=== PATIENT | female | born 1960 | race Caucasian/White ===

== ENCOUNTER 2019-01-31 16:18 | Inpatient (IN) | payer MEDICARE ==
[2019-01-31] MEDS ORDERED: SODIUM CHLORIDE 0.9% 1,000 ML IV STA (17:48)
[2019-01-31] MEDS ORDERED: AMPICILLIN-SULBACTAM 3 GM in SODIUM CHLORIDE 0.9% 100 ML IVPB STA (18:02)
[2019-01-31 18:08] LABS: Glucose,Whole Blood 79 mg/dL (75-99)
[2019-01-31 18:33] LABS: Basophils % (A) 0 %; Eosinophils # (A) 0.1 k/uL (0-0.7); Eosinophils % (A) 1 %; HCT 38.7 % (34.0-46.0); HGB 12.7 gm/dL (11.4-16.0); Lymphocytes # (A) 1.3 k/uL (1.0-4.8); Lymphocytes % (A) 11 %; MCH 28.2 pg (25.0-35.0); MCHC 32.8 g/dL (31.0-37.0); Mean Platelet Volume 7.2; Monocytes # (A) 0.8 k/uL (0-1.0); Monocytes % (A) 7 %; Neutrophils # (A) 8.7 k/uL (1.3-7.7); Neutrophils % (A) 79 %; Platelet Count 262 k/uL (150-450); RDW 13.7 % (11.5-15.5)
[2019-01-31 18:38] LABS: ALT 19 U/L (9-52); AST 23 U/L (14-36); Albumin 4.7 g/dL (3.5-5.0); Alkaline Phosphatase 75 U/L (38-126); Anion Gap 7 mmol/L; Blood Urea Nitrogen 24 mg/dL (7-17); Calcium 10.1 mg/dL (8.4-10.2); Carbon Dioxide 29 mmol/L (22-30); Chloride 104 mmol/L (98-107); Glucose 57 mg/dL (74-99); Potassium 4.2 mmol/L (3.5-5.1); Sodium 140 mmol/L (137-145); Total Bilirubin 0.5 mg/dL (0.2-1.3); Total Protein 7.2 g/dL (6.3-8.2)
[2019-01-31] MEDS ORDERED: NALOXONE 0.4 MG/ML 1 ML VIAL IV PRN (20:12)
[2019-01-31 20:45] LABS: Glucose,Whole Blood 121 mg/dL (75-99)
--- NOTE | 2019-01-31 21:09 | ED ---
General Adult HPI - General Chief complaint: Wound/Laceration Stated complaint: infected dog bite Time Seen by Provider: 01/31/19 17:19 Source: patient Mode of arrival: wheelchair Limitations: no limitations - History of Present Illness Initial comments: Patient is 58-year-old female presented to emergency department with right hand pain. Patient states that yesterday she got a dog bite on her right hand and went to [facility] where she received 6 sutures and was not discharged with any antibiotics. Patient states that the laceration has become erythematous and edematous and is now spreading proximal along the forearm. Patient states she has not taken any medication to alleviate the pain. Patient states that she has not seen any visible discharge from the laceration site. Patient denies any nausea, vomiting, diarrhea, fever, headache, lightheadedness or dizziness. - Related Data Home Medications Medication Instructions Recorded Confirmed Atorvastatin [Lipitor] 40 mg PO DAILY 01/31/19 01/31/19 Clopidogrel Bisulfate [Plavix] 75 mg PO DAILY 01/31/19 01/31/19 INSULIN LISPRO (HumaLOG) [humaLOG] See Protocol SQ ACHS 01/31/19 01/31/19 Insulin Glargine [Lantus] 30 unit SQ HS 01/31/19 01/31/19 Levothyroxine Sodium [Synthroid] 125 mcg PO DAILY 01/31/19 01/31/19 Lisinopril [Prinivil] 5 mg PO DAILY 01/31/19 01/31/19 Metoclopramide HCl [Reglan] 5 mg PO TID 01/31/19 01/31/19 Metoprolol Tartrate 25 mg PO DAILY 01/31/19 01/31/19 Sertraline [Zoloft] 200 mg PO DAILY 01/31/19 01/31/19 Allergies Allergy/AdvReac Type Severity Reaction Status Date / Time ibuprofen Allergy Unknown Verified 01/31/19 20:45 latex Allergy Unknown Verified 01/31/19 20:45 Review of Systems ROS Statement: Those systems with pertinent positive or pertinent negative responses have been documented in the HPI. ROS Other: All systems not noted in ROS Statement are negative. Past Medical History Past Medical History: CVA/TIA, Diabetes Mellitus, Myocardial Infarction ([place]) History of Any Multi-Drug Resistant Organisms: None Reported Past Surgical History: Heart Catheterization With Stent Additional Past Surgical History / Comment(s): prosthetic eye, gastric implant Past Psychological History: No Psychological Hx Reported Smoking Status: Never smoker Past Alcohol Use History: None Reported Past Drug Use History: None Reported General Exam Limitations: no limitations General appearance: alert, in no apparent distress Head exam: Present: atraumatic, normocephalic, normal inspection Eye exam: Present: normal appearance Respiratory exam: Present: normal lung sounds bilaterally Cardiovascular Exam: Present: regular rate, normal rhythm, normal heart sounds Right Shoulder Exam: Present: normal inspection, full ROM Upper Arm exam: Present: normal inspection, full ROM Elbow exam: Present: normal inspection, full ROM Forearm Wrist exam: Present: tenderness, swelling (Starting from hand and spreading proximally to mid forearm), laceration, erythema, other (2.5 cm laceration repaired with 6 sutures on posterior aspect of her right arm.). Absent: full ROM (Limited due to pain), tenderness over anatomical snuff box Hand Wrist exam: Present: tenderness, swelling, laceration, erythema Vascular: Present: normal capillary refill, radial pulse, ulnar pulse Neurological exam: Present: alert, oriented X3 Psychiatric exam: Present: normal affect, normal mood Skin exam: Present: warm, normal color Course Vital Signs 01/31/19 01/31/19 16:41 20:36 Temperature 99.4 F 98.4 F Pulse Rate 69 69 Respiratory 18 18 Rate Blood Pressure 121/66 146/66 O2 Sat by Pulse 99 98 Oximetry Medical Decision Making - Medical Decision Making Patient is a 58-year-old female presents emergency department for right hand pain. Distal physical examination patient will be admitted for inpatient care. Patient received 3 g of Unasyn. CBC, CMP, lactic acid were obtained. 1 L of fluids were administered. Patient will be admitted to observation. Admitting physician is Dr. Aranda. Dr. Avila also examined the patient and his agreed with the treatment plan. - Lab Data Result diagrams: 01/31/19 18:05 01/31/19 18:05 Lab Results 01/31/19 01/31/19 01/31/19 Range/Units 17:57 18:05 18:05 WBC 11.0 H (3.8-10.6) k/uL RBC 4.50 (3.80-5.40) m/uL Hgb 12.7 (11.4-16.0) gm/dL Hct 38.7 (34.0-46.0) % MCV 86.0 (80.0-100.0) fL MCH 28.2 (25.0-35.0) pg MCHC 32.8 (31.0-37.0) g/dL RDW 13.7 (11.5-15.5) % Plt Count 262 (150-450) k/uL Neutrophils % 79 % Lymphocytes % 11 % Monocytes % 7 % Eosinophils % 1 % Basophils % 0 % Neutrophils # 8.7 H (1.3-7.7) k/uL Lymphocytes # 1.3 (1.0-4.8) k/uL Monocytes # 0.8 (0-1.0) k/uL Eosinophils # 0.1 (0-0.7) k/uL Basophils # 0.0 (0-0.2) k/uL Sodium (137-145) mmol/L Potassium (3.5-5.1) mmol/L Chloride (98-107) mmol/L Carbon Dioxide (22-30) mmol/L Anion Gap mmol/L BUN (7-17) mg/dL Creatinine (0.52-1.04) mg/dL Est GFR (CKD-EPI)AfAm (>60 ml/min/1.73 sqM) Est GFR (CKD-EPI)NonAf (>60 ml/min/1.73 sqM) Glucose (74-99) mg/dL POC Glucose (mg/dL) 79 (75-99) mg/dL POC Glu Women Specialist ID Petitpren, Marcy Plasma Lactic Acid Mark 0.9 (0.7-2.0) mmol/L Calcium (8.4-10.2) mg/dL Total Bilirubin (0.2-1.3) mg/dL AST (14-36) U/L ALT (9-52) U/L Alkaline Phosphatase (38-126) U/L Total Protein (6.3-8.2) g/dL Albumin (3.5-5.0) g/dL 01/31/19 01/31/19 Range/Units 18:05 20:40 WBC (3.8-10.6) k/uL RBC (3.80-5.40) m/uL Hgb (11.4-16.0) gm/dL Hct (34.0-46.0) % MCV (80.0-100.0) fL MCH (25.0-35.0) pg MCHC (31.0-37.0) g/dL RDW (11.5-15.5) % Plt Count (150-450) k/uL Neutrophils % % Lymphocytes % % Monocytes % % Eosinophils % % Basophils % % Neutrophils # (1.3-7.7) k/uL Lymphocytes # (1.0-4.8) k/uL Monocytes # (0-1.0) k/uL Eosinophils # (0-0.7) k/uL Basophils # (0-0.2) k/uL Sodium 140 (137-145) mmol/L Potassium 4.2 (3.5-5.1) mmol/L Chloride 104 (98-107) mmol/L Carbon Dioxide 29 (22-30) mmol/L Anion Gap 7 mmol/L BUN 24 H (7-17) mg/dL Creatinine 0.69 (0.52-1.04) mg/dL Est GFR (CKD-EPI)AfAm >90 (>60 ml/min/1.73 sqM) Est GFR (CKD-EPI)NonAf >90 (>60 ml/min/1.73 sqM) Glucose 57 L (74-99) mg/dL POC Glucose (mg/dL) 121 H (75-99) mg/dL POC Glu Women Specialist ID Radha Og Plasma Lactic Acid Mark (0.7-2.0) mmol/L Calcium 10.1 (8.4-10.2) mg/dL Total Bilirubin 0.5 (0.2-1.3) mg/dL AST 23 (14-36) U/L ALT 19 (9-52) U/L Alkaline Phosphatase 75 (38-126) U/L Total Protein 7.2 (6.3-8.2) g/dL Albumin 4.7 (3.5-5.0) g/dL Disposition Clinical Impression: Laceration, Abscess Disposition: ADMITTED IP TO THIS HOSP Condition: Stable Additional Instructions: Patient admitted for inpatient care. Is patient prescribed a controlled substance at d/c from ED?: No Referrals: Edmar Gallegos DO [Primary Care Provider] - 1-2 days
--- NOTE | 2019-01-31 22:55 | P.HPIM ---
History of Present Illness H&P Date: 01/31/19 Patient is a 52-year-old female with a past medical history of type 1 diabetes mellitus, and CAD with multiple MIs and several stents, presented to the ED for right hand dog bite. The patient reports that her [place] bulldog bit her on the right hand yesterday at 12 PM. She subsequently went to her local urgent care center where they placed 7 sutures and discharged her to home without antibiotics. 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 The patient notes that her swelling has worsened since yesterday and she now has some discharge from the wound. She endorsed continued pain, currently at a 6 out of 10 at the site. She otherwise denied weakness or paresthesias of the hand. She further denied fever, chills, chest pain, shortness of breath, nausea, or vomiting. She also denied abdominal pain, diarrhea, or recent travel. The patient underwent an extensive elevation in the ED with WBC count 11, creatinine 0.69, BUN 24, and hemoglobin 12.7. 2 of the sutures were removed from her right hand and she was given a dose of Unasyn and subsequently admitted to the medicine service for further management. Review of Systems Pertinent positives and negatives as discussed in HPI, a complete review of systems was performed and all other systems are negative. Past Medical History Past Medical History: CVA/TIA, Diabetes Mellitus, Myocardial Infarction ([place]) History of Any Multi-Drug Resistant Organisms: None Reported Past Surgical History: Heart Catheterization With Stent Additional Past Surgical History / Comment(s): prosthetic eye, gastric implant Past Psychological History: No Psychological Hx Reported Smoking Status: Never smoker Past Alcohol Use History: None Reported Past Drug Use History: None Reported Medications and Allergies Home Medications Medication Instructions Recorded Confirmed Type Atorvastatin [Lipitor] 40 mg PO DAILY 01/31/19 01/31/19 History Clopidogrel Bisulfate [Plavix] 75 mg PO DAILY 01/31/19 01/31/19 History INSULIN LISPRO (HumaLOG) [humaLOG] See Protocol SQ ACHS 01/31/19 01/31/19 History Insulin Glargine [Lantus] 30 unit SQ HS 01/31/19 01/31/19 History Levothyroxine Sodium [Synthroid] 125 mcg PO DAILY 01/31/19 01/31/19 History Lisinopril [Prinivil] 5 mg PO DAILY 01/31/19 01/31/19 History Metoclopramide HCl [Reglan] 5 mg PO TID 01/31/19 01/31/19 History Metoprolol Tartrate 25 mg PO DAILY 01/31/19 01/31/19 History Sertraline [Zoloft] 200 mg PO DAILY 01/31/19 01/31/19 History Allergies Allergy/AdvReac Type Severity Reaction Status Date / Time ibuprofen Allergy Unknown Verified 01/31/19 20:45 latex Allergy Unknown Verified 01/31/19 20:45 Physical Exam Vitals: Vital Signs Temp Pulse Resp BP Pulse Ox 01/31/19 20:36 98.4 F 69 18 146/66 98 01/31/19 16:41 99.4 F 69 18 121/66 99 Intake and Output 01/31/19 01/31/19 01/31/19 06:59 14:59 22:59 Other: Weight 83.007 kg General: non toxic, no distress, appears at stated age, obese Derm: Right hand posterior 5 cm laceration with sutures in place, small amounts of purulent drainage, tenderness, erythema, and swelling proximally to the wou nd, on the forearm Head: atraumatic, normocephalic, symmetric Eyes: EOMI, no lid lag, anicteric sclera, pupils equal round reactive to light ENT: Nose and ears atraumatic, no thrush, no pharyngeal erythema Neck: No thyromegaly, no cervical lymphadenopathy, trachea midline, supple Mouth: no lip lesion, mucus membranes moist Cardiovascular: S1S2 reg, no murmur, positive posterior tibial pulse bilateral, no edema, capillary refill less than 2 seconds Lungs: CTA bilateral, no rhonchi, no rales , no accessory muscle use Abdominal: soft, nontender to palpation, no guarding, no appreciable organome daya, normal bowel sounds Ext: no gross muscle atrophy, muscle strength 5 out of 5 in all 4 extremities grossly, no contractures, Neuro: CN II-XI grossly intact, light touch intact all 4 extremities, finger to nose within normal limits, Psych: Alert, oriented, appropriate affect Results CBC & Chem 7: 01/31/19 18:05 01/31/19 18:05 Labs: Abnormal Lab Results - Last 24 Hours (Table) 01/31/19 01/31/19 01/31/19 Range/Units 18:05 18:05 20:40 WBC 11.0 H (3.8-10.6) k/uL Neutrophils # 8.7 H (1.3-7.7) k/uL BUN 24 H (7-17) mg/dL Glucose 57 L (74-99) mg/dL POC Glucose (mg/dL) 121 H (75-99) mg/dL Assessment and Plan Plan: Dog bite, status post suturing -Continue with Unasyn for now -Likely switch to Augmentin for discharge -Surgery consult since failed outpatient therapy, and sutures in a high-risk area Diabetes mellitus -Resume home medications, Lantus and Humalog -Blood glucose monitoring CAD -Continue with Plavix, Lipitor Hypertension -Resume home medications, lisinopril, Toprol DVT prophylaxis -Heparin The patient is admitted with an anticipated less than 2 midnight stay for evaluation of Dog bite. CODE STATUS:Full Code Discussed with: Patient Anticipated discharge date: 02/02/[address]: Home A total of 40 minutes was spent on the care of this complex patient more than 50% of the time was spent in counseling and care coordination.
[2019-01-31] MEDS: MORPHINE SULFATE 4 MG/ML SYRINGE IV PRN (22:56)
[2019-01-31] MEDS ORDERED: INSULIN DETEMIR (LEVEMIR) 100 UNIT/ML SYR SQ SCH (23:00)
[2019-01-31 23:12] LABS: Glucose,Whole Blood 160 mg/dL (75-99)
[2019-01-31] MEDS: AMPICILLIN-SULBACTAM 1.5 GM in SODIUM CHLORIDE 0.9% 50 ML IVPB SCH (23:13)
[2019-02-01] MEDS: HYDROcodone/APAP 5-325MG 1 EACH TAB PO PRN (00:22)
[2019-02-01] MEDS: HEPARIN SODIUM,PORCINE 5,000 UNIT/ML 1 ML VIAL SQ SCH ×4 (00:22→22:50)
[2019-02-01] MEDS: AMPICILLIN-SULBACTAM 1.5 GM in SODIUM CHLORIDE 0.9% 50 ML IVPB SCH ×3 (05:25→22:34)
[2019-02-01] MEDS: LEVOTHYROXINE 125 MCG TAB PO SCH (05:25)
--- NOTE | 2019-02-01 07:18 | P.GSCN ---
History of Present Illness Consult date: 02/01/19 Reason for Consult: Dog bite left hand History of present illness: This is a 58-year-old female who was bit by her pet bulldog. Patient had a laceration of her left hand which was repaired.. She had some swelling and inflammation of her left hand and forearm. Patient admitted to the hospital for cellulitis of the left hand and forearm. She received IV antibiotic therapy overnight. Her swelling has improved. 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 2009 with left sided weakness, Last [place] september 2009, 7 Stents placed Last Myocardial Infarction Date:: september 2009 History of Any Multi-Drug Resistant Organisms: None Reported Past Surgical History: Heart Catheterization With Stent Additional Past Surgical History / Comment(s): prosthetic eye, gastric implant Date of Last Stent Placement:: august 2010 Past Psychological History: No Psychological Hx Reported Smoking Status: Never smoker Past Alcohol Use History: None Reported Past Drug Use History: None Reported Medications and Allergies Home Medications Medication Instructions Recorded Confirmed Type Atorvastatin [Lipitor] 40 mg PO DAILY 01/31/19 01/31/19 History Clopidogrel Bisulfate [Plavix] 75 mg PO DAILY 01/31/19 01/31/19 History INSULIN LISPRO (HumaLOG) [humaLOG] See Protocol SQ ACHS 01/31/19 01/31/19 History Insulin Glargine [Lantus] 30 unit SQ HS 01/31/19 01/31/19 History Levothyroxine Sodium [Synthroid] 125 mcg PO DAILY 01/31/19 01/31/19 History Lisinopril [Prinivil] 5 mg PO DAILY 01/31/19 01/31/19 History Metoclopramide HCl [Reglan] 5 mg PO TID 01/31/19 01/31/19 History Metoprolol Tartrate 25 mg PO DAILY 01/31/19 01/31/19 History Sertraline [Zoloft] 200 mg PO DAILY 01/31/19 01/31/19 History Allergies Allergy/AdvReac Type Severity Reaction Status Date / Time ibuprofen Allergy Unknown Verified 01/31/19 20:45 latex Allergy Unknown Verified 01/31/19 20:45 Surgical - Exam Vital Signs Temp Pulse Resp BP Pulse Ox 99.4 F 69 18 121/66 99 01/31/19 16:41 01/31/19 16:41 01/31/19 16:41 01/31/19 16:41 01/31/19 16:41 - General well developed, well nourished, no distress - Eyes PERRL - ENT normal pinna - Neck no masses - Respiratory normal expansion - Cardiovascular Rhythm: regular - Abdomen Abdomen: soft, non tender - Musculoskeletal Left hand mild swelling. There is evidence of a laceration repair on the dorsal left hand. Patient is able to move all of her fingers. She has normal sensation. There is some erythematous extending from the hand onto the forearm. There is some mild swelling as well. Results - Labs 01/31/19 18:05 01/31/19 18:05 Abnormal Lab Results - Last 24 Hours (Table) 01/31/19 01/31/19 01/31/19 Range/Units 18:05 18:05 20:40 WBC 11.0 H (3.8-10.6) k/uL Neutrophils # 8.7 H (1.3-7.7) k/uL BUN 24 H (7-17) mg/dL Glucose 57 L (74-99) mg/dL POC Glucose (mg/dL) 121 H (75-99) mg/dL 01/31/19 Range/Units 22:53 WBC (3.8-10.6) k/uL Neutrophils # (1.3-7.7) k/uL BUN (7-17) mg/dL Glucose (74-99) mg/dL POC Glucose (mg/dL) 160 H (75-99) mg/dL Diabetes panel 01/31/19 Range/Units 18:05 Sodium 140 (137-145) mmol/L Potassium 4.2 (3.5-5.1) mmol/L Chloride 104 (98-107) mmol/L Carbon Dioxide 29 (22-30) mmol/L BUN 24 H (7-17) mg/dL Creatinine 0.69 (0.52-1.04) mg/dL Glucose 57 L (74-99) mg/dL Calcium 10.1 (8.4-10.2) mg/dL AST 23 (14-36) U/L ALT 19 (9-52) U/L Alkaline Phosphatase 75 (38-126) U/L Total Protein 7.2 (6.3-8.2) g/dL Albumin 4.7 (3.5-5.0) g/dL Calcium panel 01/31/19 Range/Units 18:05 Calcium 10.1 (8.4-10.2) mg/dL Albumin 4.7 (3.5-5.0) g/dL Pituitary panel 01/31/19 Range/Units 18:05 Sodium 140 (137-145) mmol/L Potassium 4.2 (3.5-5.1) mmol/L Chloride 104 (98-107) mmol/L Carbon Dioxide 29 (22-30) mmol/L BUN 24 H (7-17) mg/dL Creatinine 0.69 (0.52-1.04) mg/dL Glucose 57 L (74-99) mg/dL Calcium 10.1 (8.4-10.2) mg/dL Adrenal panel 01/31/19 Range/Units 18:05 Sodium 140 (137-145) mmol/L Potassium 4.2 (3.5-5.1) mmol/L Chloride 104 (98-107) mmol/L Carbon Dioxide 29 (22-30) mmol/L BUN 24 H (7-17) mg/dL Creatinine 0.69 (0.52-1.04) mg/dL Glucose 57 L (74-99) mg/dL Calcium 10.1 (8.4-10.2) mg/dL Total Bilirubin 0.5 (0.2-1.3) mg/dL AST 23 (14-36) U/L ALT 19 (9-52) U/L Alkaline Phosphatase 75 (38-126) U/L Total Protein 7.2 (6.3-8.2) g/dL Albumin 4.7 (3.5-5.0) g/dL Assessment and Plan Assessment: Left hand/forearm synovitis related to dog bite. Patient receive IV antibiotic. If the patient has increased swelling she will require consultation by hand surgeon. I would recommend orthopedic appeared to be consult with during her hospitalization..
[2019-02-01] MEDS: INSULIN ASPART (NovoLOG) 100 UNIT/ML VIAL SQ SCH ×4 (07:39→22:34)
[2019-02-01] MEDS: SERTRALINE 100 MG TAB PO SCH (07:40)
[2019-02-01] MEDS: MORPHINE SULFATE 4 MG/ML SYRINGE IV PRN ×2 (07:40→11:43)
[2019-02-01] MEDS: CLOPIDOGREL 75 MG TAB PO SCH (07:40)
[2019-02-01] MEDS: LISINOPRIL 5 MG TAB PO SCH (07:41)
[2019-02-01] MEDS: ATORVASTATIN 40 MG TAB PO SCH (07:41)
[2019-02-01] MEDS: METOPROLOL TARTRATE 25 MG TAB PO SCH (07:43)
[2019-02-01 07:45] LABS: Glucose,Whole Blood 60 mg/dL (75-99)
[2019-02-01 08:11] LABS: Glucose,Whole Blood 69 mg/dL (75-99)
[2019-02-01 08:16] LABS: Glucose,Whole Blood 86 mg/dL (75-99)
[2019-02-01] MEDS: ONDANSETRON 4 MG/2 ML VIAL IVP PRN ×2 (08:42→16:17)
--- NOTE | 2019-02-01 11:00 | P.CNOR ---
History of Present Illness - HPI Consult date: 02/01/19 Consult reason: other History of present illness: Patient is a 4-year-old female who presented to [facility] yesterday evening with regards to swelling and pain all the lower right hand. Patient was apparently bitten by her dog the afternoon of 01/30/2019. She first went to urgent care and [facility], sutures were placed, she was now placed on antibiotics. By yesterday evening she had noticed increasing pain and swelling and redness involving the hand. At [facility], the ER staff remove most of the stitches and irrigated out the wound. A few sutures were then placed again, she is placed on IV antibiotics and admitted to the hospital. She is currently admitted under internal medicine, general surgery has evaluated the patient also. Patient was evaluated today at bedside, Dr. Fuentes was available to examine the patient also. Patient notes that the swelling and redness has decreased, the pain is roughly the same. This controlled currently with oral medication. She notes discomfort involving the hand mainly when she tries to move the fingers and wrists. She denies any previous surgery involving the right upper extremity. She has no other orthopedic complaints at this time. 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, Last [place] september 2009, 7 Stents placed Last Myocardial Infarction Date:: september 2009 History of Any Multi-Drug Resistant Organisms: None Reported Past Surgical History: Heart Catheterization With Stent Additional Past Surgical History / Comment(s): prosthetic eye, gastric implant Date of Last Stent Placement:: august 2010 Past Psychological History: No Psychological Hx Reported Smoking Status: Never smoker Past Alcohol Use History: None Reported Past Drug Use History: None Reported Medications and Allergies Home Medications Medication Instructions Recorded Confirmed Type Atorvastatin [Lipitor] 40 mg PO DAILY 01/31/19 01/31/19 History Clopidogrel Bisulfate [Plavix] 75 mg PO DAILY 01/31/19 01/31/19 History INSULIN LISPRO (HumaLOG) [humaLOG] See Protocol SQ ACHS 01/31/19 01/31/19 History Insulin Glargine [Lantus] 30 unit SQ HS 01/31/19 01/31/19 History Levothyroxine Sodium [Synthroid] 125 mcg PO DAILY 01/31/19 01/31/19 History Lisinopril [Prinivil] 5 mg PO DAILY 01/31/19 01/31/19 History Metoclopramide HCl [Reglan] 5 mg PO TID 01/31/19 01/31/19 History Metoprolol Tartrate 25 mg PO DAILY 01/31/19 01/31/19 History Sertraline [Zoloft] 200 mg PO DAILY 01/31/19 01/31/19 History Allergies Allergy/AdvReac Type Severity Reaction Status Date / Time ibuprofen Allergy Unknown Verified 01/31/19 20:45 latex Allergy Unknown Verified 01/31/19 20:45 Physical Examination Right upper extremity: Mobile transverse laceration on the dorsal aspect of the hand, it ranges about 5 cm, there are nylon sutures present. Obvious soft tissue swelling is present, there is trace redness that does extend up to the middle of the forearm. No obvious purulent drainage is present. She is able to wiggle her fingers, she can also make a fist. Strength testing there is notable weakness with extension of the index finger. Sensation to light touch throughout the extremities intact, her radial pulses 2+. Skin is warm to touch. Results - Labs Labs: Abnormal Lab Results - Last 24 Hours (Table) 01/31/19 01/31/19 01/31/19 Range/Units 18:05 18:05 20:40 WBC 11.0 H (3.8-10.6) k/uL Neutrophils # 8.7 H (1.3-7.7) k/uL BUN 24 H (7-17) mg/dL Glucose 57 L (74-99) mg/dL POC Glucose (mg/dL) 121 H (75-99) mg/dL 01/31/19 02/01/19 02/01/19 Range/Units 22:53 07:31 07:50 WBC (3.8-10.6) k/uL Neutrophils # (1.3-7.7) k/uL BUN (7-17) mg/dL Glucose (74-99) mg/dL POC Glucose (mg/dL) 160 H 60 L 69 L (75-99) mg/dL H & H 01/31/19 Range/Units 18:05 Hgb 12.7 (11.4-16.0) gm/dL Hct 38.7 (34.0-46.0) % Result Diagrams: 01/31/19 18:05 01/31/19 18:05 Assessment and Plan Plan: Imaging: I did order x-rays of the right hand, awaiting results Assessment: 1. Right hand laceration 2. Possible partial extensor tendon injury right index finger 3. Right hand cellulitis 4. Status post dog bite 5. Other medical comorbidities Plan: Dr. Fuentes was available today to examine the patient with me at bedside. We discussed many treatment options with the patient. We'll like to proceed with an incision and drainage with irrigation and debridement of the right hand, along with possible extensor tendon repair. Risks and benefits of the procedure were discussed patient at bedside, she would like to proceed. Plan is proceed with surgery on 02/01/2019 Obtain consent Nothing by mouth Pain control Other biomedical scientist recommendations Further recommendations to follow Time with Patient: Less than 30
[2019-02-01 11:44] LABS: Glucose,Whole Blood 135 mg/dL (75-99)
--- NOTE | 2019-02-01 12:14 | XR ---
Right hand HISTORY: Penetrating trauma, dog bite, erythema 3 views the right hand Soft tissue swelling is present. There is remodeling of the radiocarpal joint. No radiopaque foreign body. No fracture or dislocation evident. Soft tissue calcifications are noted at the level of the di stal third metacarpal. Basilar calcifications noted incidentally. IMPRESSION: Correlate for cellulitis.
--- NOTE | 2019-02-01 12:48 | P.PN ---
Subjective Progress Note Date: 02/01/19 Principal diagnosis: dog bite Patient was seen and examined. No acute events overnight. Patient reports right hand pain is radiating up to the elbow. Unable to flex her fingers. She denies any fever or chills. No nausea or vomiting. Objective - Vital Signs Vital signs: Vital Signs Temp 98.0 F 02/01/19 07:30 Pulse 61 02/01/19 07:30 Resp 16 02/01/19 07:30 BP 115/69 02/01/19 07:30 Pulse Ox 94 L 02/01/19 07:30 Intake & Output 01/31/19 02/01/19 02/01/19 18:59 06:59 18:59 Weight 83.007 kg Other: Voiding Method Toilet # Voids 1 - Exam General: [non toxic], [no distress], [appears at stated age] Derm: [warm], [dry] Head: [atraumatic], [normocephalic], [symmetric] Eyes: [EOMI], [no lid lag], [anicteric sclera] Mouth: [no lip lesion], [mucus membranes moist] Cardiovascular: [S1S2 reg], [no murmur], [positive DP pulse bilateral], Lungs: [CTA bilateral], [no rhonchi, no rales] , [no accessory muscle use] Abdominal: [soft], [ nontender to palpation], [no guarding], [no appreciable organomegaly] Ext: [no gross muscle atrophy], [no edema], [no contractures], [dorsal laceration 5 cm sutures, generalized tenderness, restricted range of motion] Neuro: [decreased sensation left lower extremity] Psych: [Alert], [oriented], [appropriate affect] - Labs CBC & Chem 7: 01/31/19 18:05 01/31/19 18:05 Labs: Abnormal Lab Results - Last 24 Hours (Table) 01/31/19 01/31/19 01/31/19 Range/Units 18:05 18:05 20:40 WBC 11.0 H (3.8-10.6) k/uL Neutrophils # 8.7 H (1.3-7.7) k/uL BUN 24 H (7-17) mg/dL Glucose 57 L (74-99) mg/dL POC Glucose (mg/dL) 121 H (75-99) mg/dL 01/31/19 02/01/19 02/01/19 Range/Units 22:53 07:31 07:50 WBC (3.8-10.6) k/uL Neutrophils # (1.3-7.7) k/uL BUN (7-17) mg/dL Glucose (74-99) mg/dL POC Glucose (mg/dL) 160 H 60 L 69 L (75-99) mg/dL 02/01/19 Range/Units 11:42 WBC (3.8-10.6) k/uL Neutrophils # (1.3-7.7) k/uL BUN (7-17) mg/dL Glucose (74-99) mg/dL POC Glucose (mg/dL) 135 H (75-99) mg/dL Assessment and Plan Assessment: Assessment and Plan Dog bite right hand post suturing Diabetes mellitus CAD Hypertension Hypothyroidism. Plan: Continue Unasyn IV. Pain management with [place] or morphine.general surgery consulted, recommends orthopedic consultation. Orthopedic surgery consulted, recommends I&D and possible tendon repair.follow and x-ray. Follow blood culture. Possible plans for OR tomorrow. [id number] glucose 135. Plan: Levemir 25 units at bedtime. Insulin sliding scale. Hypoglycemic precautions. Regular Accu-Cheks. Ensure type glycemic control that would prevent poor wound healing. Plan: Continue Plavix and Lipitor. Continue beta yumiko. BP 115/69. Plan: Continue metoprolol and lisinopril. Monitor vitals, adjust medications as necessary. Plan: Continue Synthroid. Plans for possible OR today or tomorrow. Continue IV antibiotics. Orthopedic surgery on board.
[2019-02-01] MEDS ORDERED: IV FLUID CONTINUATION 1,000 ML IV ONE (17:04)
[2019-02-01] MEDS ORDERED: LACTATED RINGERS 1,000 ML IV ONE ×2 (17:04→19:45)
[2019-02-01 17:21] LABS: Glucose,Whole Blood 85 mg/dL (75-99)
[2019-02-01] MEDS ORDERED: ONDANSETRON 4 MG/2 ML VIAL IVP ONE ×2 (17:26→19:29)
[2019-02-01] MEDS ORDERED: SCOPOLAMINE 1.5MG/72HR PATCH TRANSDERM ONE (17:27)
[2019-02-01] MEDS ORDERED: ePHEDrine SULFATE/0.9% NACL/PF 50 MG/5 ML SYRINGE IV ONE (18:00)
[2019-02-01] MEDS ORDERED: fentaNYL (PF) 50 MCG/ML 2 ML AMP ONE (18:00)
[2019-02-01] MEDS ORDERED: SUCCINYLCHOLINE CHLORIDE 100 MG/5 ML SYR IV ONE (18:00)
[2019-02-01] MEDS ORDERED: PROPOFOL 10 MG/ML 20 ML VIAL IV ONE (18:00)
[2019-02-01] MEDS ORDERED: LIDOCAINE 1% INJ 10MG/ML (20 ML MDV) ONE (18:00)
[2019-02-01] MEDS ORDERED: MIDAZOLAM 2 MG/2 ML VIAL ONE (18:00)
[2019-02-01 18:01] LABS: Glucose,Whole Blood 90 mg/dL (75-99)
--- NOTE | 2019-02-01 18:58 | P.OP ---
Date of Procedure: 02/01/19 Preoperative Diagnosis: Dog bite right hand with dorsal laceration and cellulitis Postoperative Diagnosis: Same Procedure(s) Performed: Irrigation and debridement/wound exploration right dorsal hand wound with primary closure Anesthesia: FAMILIA Surgeon: Otis Fuentes Disaster Director #1: Kong Cuello Estimated Blood Loss (ml): 3 Pathology: other (Deep cultures) Condition: stable Disposition: PACU Indications for Procedure: The patient's a 58-year-old female who sustained a dog bite to her right hand dorsum 2 days ago who presents with progressive right hand pain and swelling. Clinically she was noted of significant cellulitis and possible tendon invo lvement involving the index extensor. A discussion of the risks and benefits of operative intervention was made with the patient. She opted to proceed. Risks of the procedure to include persistence of infection and possible need for subsequent procedures was discussed. Informed consent was obtained. Operative Findings: Mild purulence, no definite tendinous involvement Description of Procedure: The patient was brought to the operating room, and after induction of general anesthesia the right upper extremity was prepped and draped in normal fashion. The previously placed sutures over the dorsum of the right hand were removed. Purulence was expressed. The right upper extremity was prepped and draped in normal fashion. The wound was then explored. The laceration was down to the tendon sheath however no ethel tendon involvement was noted. Deep cultures were obtained. The wound edges were sharply debrided with a scalpel back to a bleeding surface. The wound was then copiously irrigated with normal saline. The skin was loosely reapproximated with simple 3-0 nylon suture. A sterile dressing was applied. The patient was awoken from general anesthesia and transferred to recovery room in condition. Blood loss was estimated 3 mL. No complications were incurred. Sponge and needle counts were correct at the end the case.
[2019-02-01] MEDS ORDERED: HYDROmorphone 1 MG/ML 1 ML SYRINGE IVP ONE ×3 (19:22→19:33)
[2019-02-01 21:41] LABS: Glucose,Whole Blood 124 mg/dL (75-99)
[2019-02-01] MEDS: INSULIN DETEMIR (LEVEMIR) 100 UNIT/ML SYR SQ SCH (22:49)
[2019-02-02] MEDS: AMPICILLIN-SULBACTAM 1.5 GM in SODIUM CHLORIDE 0.9% 50 ML IVPB SCH ×4 (04:43→18:26)
[2019-02-02 04:49] LABS: Glucose,Whole Blood 139 mg/dL (75-99)
[2019-02-02] MEDS: LEVOTHYROXINE 125 MCG TAB PO SCH (06:22)
[2019-02-02] MEDS: HYDROmorphone 0.5 MG/0.5 ML SYRINGE IM PRN ×2 (06:27→18:27)
[2019-02-02 07:34] LABS: Glucose,Whole Blood 128 mg/dL (75-99)
[2019-02-02] MEDS: INSULIN ASPART (NovoLOG) 100 UNIT/ML VIAL SQ SCH ×4 (08:15→22:15)
[2019-02-02 09:06] LABS: HCT 30.8 % (34.0-46.0); HGB 10.3 gm/dL (11.4-16.0); MCHC 33.4 g/dL (31.0-37.0); Mean Platelet Volume 7.5; Platelet Count 201 k/uL (150-450); RBC 3.55 m/uL (3.80-5.40); RDW 13.5 % (11.5-15.5); WBC 7.9 k/uL (3.8-10.6)
[2019-02-02 09:08] LABS: ALT 20 U/L (9-52); AST 26 U/L (14-36); Albumin 3.4 g/dL (3.5-5.0); Alkaline Phosphatase 68 U/L (38-126); Anion Gap 5 mmol/L; Blood Urea Nitrogen 21 mg/dL (7-17); Calcium 8.8 mg/dL (8.4-10.2); Carbon Dioxide 27 mmol/L (22-30); Chloride 108 mmol/L (98-107); Glucose 107 mg/dL (74-99); Potassium 4.5 mmol/L (3.5-5.1); Sodium 140 mmol/L (137-145); Total Bilirubin 0.6 mg/dL (0.2-1.3); Total Protein 5.7 g/dL (6.3-8.2)
[2019-02-02] MEDS: HEPARIN SODIUM,PORCINE 5,000 UNIT/ML 1 ML VIAL SQ SCH ×2 (10:00→18:25)
[2019-02-02] MEDS: LISINOPRIL 5 MG TAB PO SCH (10:00)
[2019-02-02] MEDS: METOPROLOL TARTRATE 25 MG TAB PO SCH (10:01)
[2019-02-02] MEDS: CLOPIDOGREL 75 MG TAB PO SCH (10:01)
[2019-02-02] MEDS: SERTRALINE 100 MG TAB PO SCH (10:01)
[2019-02-02] MEDS: ATORVASTATIN 40 MG TAB PO SCH (10:01)
[2019-02-02] MEDS: HYDROcodone/APAP 5-325MG 1 EACH TAB PO PRN (10:03)
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
--- NOTE | 2019-02-02 11:23 | P.PN ---
Subjective Progress Note Date: 02/02/19 Principal diagnosis: Status post I&D right hand Patient evaluated at bedside, she is resting comfortably. She notes some discomfort on the top of her hand. She also notes some nausea this morning. She denies any fevers or chills at this time. Objective - Vital Signs Vital signs: Vital Signs Temp 99.3 F 02/02/19 06:47 Pulse 84 02/02/19 06:47 Resp 22 02/02/19 06:47 BP 118/69 02/02/19 06:47 Pulse Ox 93 L 02/02/19 06:47 Intake & Output 02/01/19 02/02/19 02/02/19 18:59 06:59 18:59 Intake Total 1060 200 Output Total 5 Balance 1055 200 Intake: IV 800 200 Intake, IV Titration 260 Amount Ampicillin-Sulbactam 1.5 100 gm In Sodium Chloride 0.9 % 50 ml @ 100 mls/hr IVPB Q6HR [facility] Rx#:[id number] Sodium Chloride 0.9% 1, 160 000 ml @ 999 mls/hr IV . Q1H1M STA Rx#:[id number] Output: Estimated Blood Loss 5 Other: Voiding Method Toilet Toilet # Voids 0 - Exam Right upper extremity: Initial postoperative bandage was removed today, incision is clean, dry and intact. Stitches are all in good position. Soft tissue swelling and erythema has improved. She is able to wiggle the fingers and minimal difficulty. Her sensation to light touch is intact. Her radial pulses 2+. - Labs CBC & Chem 7: 02/02/19 08:11 02/02/19 08:11 Labs: Abnormal Lab Results - Last 24 Hours (Table) 02/01/19 02/01/19 02/02/19 Range/Units 11:42 21:29 04:48 RBC (3.80-5.40) m/uL Hgb (11.4-16.0) gm/dL Hct (34.0-46.0) % Chloride (98-107) mmol/L BUN (7-17) mg/dL Glucose (74-99) mg/dL POC Glucose (mg/dL) 135 H 124 H 139 H (75-99) mg/dL Total Protein (6.3-8.2) g/dL Albumin (3.5-5.0) g/dL 02/02/19 02/02/19 02/02/19 Range/Units 06:50 08:11 08:11 RBC 3.55 L (3.80-5.40) m/uL Hgb 10.3 L (11.4-16.0) gm/dL Hct 30.8 L (34.0-46.0) % Chloride 108 H (98-107) mmol/L BUN 21 H (7-17) mg/dL Glucose 107 H (74-99) mg/dL POC Glucose (mg/dL) 128 H (75-99) mg/dL Total Protein 5.7 L (6.3-8.2) g/dL Albumin 3.4 L (3.5-5.0) g/dL Microbiology - Last 24 Hours (Table) 02/01/19 18:50 Gram Stain - Preliminary Hand - Right Wound Culture - Preliminary 02/01/19 18:50 Anaerobic Culture - Preliminary Hand - Right 01/31/19 18:30 Blood Culture - Preliminary Blood No Growth after 24 hours Assessment and Plan Plan: Assessment: Postop day #1 status post I&D right hand Plan: Pain control, discussed the patient that heavier narcotics will cause nausea, mentioned to try to eat something before taking Daily dressing changes/ice and elevate Wound cultures are pending at this time, infectious disease recommendations appreciated Medical management Further recommendations to follow Time with Patient: Less than 30
[2019-02-02 12:26] LABS: Glucose,Whole Blood 147 mg/dL (75-99)
--- NOTE | 2019-02-02 13:17 | XR ---
EXAMINATION TYPE: XR chest 2V DATE OF EXAM: 02/02/2019 HISTORY: hypoxia. REFERENCE: NONE. FINDINGS: The heart is enlarged. There is vascular congestion. Subtle interstitial change. This quest ionable early infiltrate at the right lung base. No definite pleural fluid is seen. IMPRESSION: 1. CARDIOMEGALY. 2. RIGHT BASILAR AIRSPACE DISEASE. 3. I COULD NOT EXCLUDE A MILD DEGREE OF HEART FAILURE.
--- NOTE | 2019-02-02 14:48 | P.PN ---
Subjective Progress Note Date: 02/02/19 Principal diagnosis: Dog bite Patient says her pain is slightly increased after yesterday's surgical intervention. Still feels swollen. No numbness or weakness that she can appr eciate. T-max 99.3. White blood cell count normal. Objective - Vital Signs Vital signs: Vital Signs Temp 99.3 F 02/02/19 06:47 Pulse 84 02/02/19 06:47 Resp 22 02/02/19 06:47 BP 118/69 02/02/19 06:47 Pulse Ox 93 L 02/02/19 06:47 Intake & Output 02/01/19 02/02/19 02/02/19 18:59 06:59 18:59 Intake Total 1060 200 Output Total 5 Balance 1055 200 Intake: IV 800 200 Intake, IV Titration 260 Amount Ampicillin-Sulbactam 1.5 100 gm In Sodium Chloride 0.9 % 50 ml @ 100 mls/hr IVPB Q6HR [facility] Rx#:[id number] Sodium Chloride 0.9% 1, 160 000 ml @ 999 mls/hr IV . Q1H1M STA Rx#:[id number] Output: Estimated Blood Loss 5 Other: Voiding Method Toilet Toilet # Voids 0 2 - Exam Right hand dressing clean without significant drainage, mild edema, mild tenderness - Labs CBC & Chem 7: 02/02/19 08:11 02/02/19 08:11 Labs: Abnormal Lab Results - Last 24 Hours (Table) 02/01/19 02/02/19 02/02/19 Range/Units 21:29 04:48 06:50 RBC (3.80-5.40) m/uL Hgb (11.4-16.0) gm/dL Hct (34.0-46.0) % Chloride (98-107) mmol/L BUN (7-17) mg/dL Glucose (74-99) mg/dL POC Glucose (mg/dL) 124 H 139 H 128 H (75-99) mg/dL Total Protein (6.3-8.2) g/dL Albumin (3.5-5.0) g/dL 02/02/19 02/02/19 02/02/19 Range/Units 08:11 08:11 12:23 RBC 3.55 L (3.80-5.40) m/uL Hgb 10.3 L (11.4-16.0) gm/dL Hct 30.8 L (34.0-46.0) % Chloride 108 H (98-107) mmol/L BUN 21 H (7-17) mg/dL Glucose 107 H (74-99) mg/dL POC Glucose (mg/dL) 147 H (75-99) mg/dL Total Protein 5.7 L (6.3-8.2) g/dL Albumin 3.4 L (3.5-5.0) g/dL Microbiology - Last 24 Hours (Table) 02/01/19 18:50 Gram Stain - Preliminary Hand - Right Wound Culture - Preliminary 02/01/19 18:50 Anaerobic Culture - Preliminary Hand - Right 01/31/19 18:30 Blood Culture - Preliminary Blood No Growth after 24 hours Assessment and Plan (1) Cellulitis Narrative/Plan: Patient postop from incision and drainage procedure by orthopedics. Continue antibiotics. We'll sign off. Defer management of the patient's dog bite wound orthopedics at this point. Current Visit: Yes Status: Acute Code(s): L03.90 - CELLULITIS, UNSPECIFIED SNOMED Code(s): 077641005
[2019-02-02 17:02] LABS: Glucose,Whole Blood 207 mg/dL (75-99)
--- NOTE | 2019-02-02 18:03 | P.CONS ---
History of Present Illness - Reason for Consult Consult date: 02/02/19 - Chief Complaint pain to the right hand - History of Present Illness 58-year-old female presents to Hospital because of increasing pain swelling and discomfort to her right hand. She relates that on January 30, 2019 she was bit by her pet dog in the home setting. It appears that it was a provoked attack, he patient has been updated on her tetanus vaccine, and the pet dog is up-to-date on its rabies vaccines. The patient relates that because she has a many year history of diabetes she w ent to the local urgent care center where the site was cleansed and sutured tightly closed. Although she's been a diabetic for 51 years that he did not think she anabolic therapy and she was discharged home. Now within a few days assay became uncomfortable erythematous tender and taunt. She constantly presented emergency center. He was taken the operating room by orthopedics for the incision and drainage of the infection at the bite site. It was well debridement loosely closed and receiving antibiotic therapy at this time appropriately with Unasyn as directed. She relates that her pain is improving. But she still somewhat uncomfortable. She's had no other difficulties with animal bites in the past. Review of Systems HEENT patient denies sinus her mouth discomfort. No dysphagia. No oral pain. No neck stiffness or lymphadenopathy Lungs patient denies shortness of breath cough or sputum production no hemoptysis Heart patient denies chest pain or pressure. He is not having dyspnea on exertion, orthopnea, or syncope Abdomen patient denies abdominal pain, denies nausea vomiting constipation or diarrhea. Denies hematemesis melena or hematochezia Extremities as per the history of present illness has the bite to the right hand with pain and discomfort now improving after surgery. the patient has no complaints of lower extremity edema or lesions. 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 was in the family home with her . They have a pet dog. no international travel. has some significant debility related to her long-standing history of diabetes Smoking Status: Never smoker Past Alcohol Use History: None Reported Past Drug Use History: None Reported Medications and Allergies Home Medications and Allergies Comment(s): Current Medications Hydrocodone Bitart/Acetaminophen (Isabel 5-325) 1 each PO Q4HR PRN PRN Reason: Moderate Pain Last Admin: 02/02/19 10:03 Dose: 1 each Documented by: Hydrocodone Bitart/Acetaminophen (Isabel 5-325) 2 each PO Q6HR PRN PRN Reason: Severe Pain Atorvastatin Calcium (Lipitor) 40 mg PO DAILY [facility] Last Admin: 02/02/19 10:01 Dose: 40 mg Documented by: Clopidogrel Bisulfate (Plavix) 75 mg PO DAILY [facility] Last Admin: 02/02/19 10:01 Dose: 75 mg Documented by: Heparin Sodium (Porcine) (Heparin) 5,000 unit SQ Q8HR [facility] Last Admin: 02/02/19 10:00 Dose: 5,000 unit Documented by: Hydromorphone HCl (Dilaudid) 0.5 mg IM Q4HR PRN PRN Reason: Pain Last Admin: 02/02/19 06:27 Dose: 0.5 mg Documented by: Ampicillin Sodium/Sulbactam (Sodium 1.5 gm/ Sodium Chloride) 50 mls @ 100 mls/hr IVPB Q6HR [facility] Last Admin: 02/02/19 12:49 Dose: 100 mls/hr Documented by: Insulin Aspart (Novolog) [address] [facility]; Protocol Last Admin: 02/02/19 17:12 Dose: Not Given Documented by: Insulin Detemir (Levemir) 25 unit SQ HS [facility] Last Admin: 02/01/19 22:49 Dose: 25 unit Documented by: Levothyroxine Sodium (Synthroid) 125 mcg PO DAILY@0630 [facility] Last Admin: 02/02/19 06:22 Dose: 125 mcg Documented by: Lisinopril (Zestril) 5 mg PO DAILY [facility] Last Admin: 02/02/19 10:00 Dose: 5 mg Documented by: Metoprolol Tartrate (Lopressor) 25 mg PO DAILY [facility] Last Admin: 02/02/19 10:01 Dose: 25 mg Documented by: Morphine Sulfate (Morphine Sulfate (Inj)) 4 mg IV Q4HR PRN PRN Reason: Severe Pain Last Admin: 02/01/19 11:43 Dose: 4 mg Documented by: Naloxone HCl (Narcan) 0.2 mg IV Q2M PRN PRN Reason: Opioid Reversal Ondansetron HCl (Zofran) 4 mg IVP Q8HR PRN PRN Reason: Nausea And Vomiting Last Admin: 02/01/19 16:17 Dose: 4 mg Documented by: Sertraline HCl (Zoloft) 200 mg PO DAILY [facility] Last Admin: 02/02/19 10:01 Dose: 200 mg Documented by: Home Medications Medication Instructions Recorded Confirmed Type Atorvastatin [Lipitor] 40 mg PO DAILY 01/31/19 01/31/19 History Clopidogrel Bisulfate [Plavix] 75 mg PO DAILY 01/31/19 01/31/19 History INSULIN LISPRO (HumaLOG) [humaLOG] See Protocol SQ ACHS 01/31/19 01/31/19 History Insulin Glargine [Lantus] 30 unit SQ HS 01/31/19 01/31/19 History Levothyroxine Sodium [Synthroid] 125 mcg PO DAILY 01/31/19 01/31/19 History Lisinopril [Prinivil] 5 mg PO DAILY 01/31/19 01/31/19 History Metoclopramide HCl [Reglan] 5 mg PO TID 01/31/19 01/31/19 History Metoprolol Tartrate 25 mg PO DAILY 01/31/19 01/31/19 History Sertraline [Zoloft] 200 mg PO DAILY 01/31/19 01/31/19 History Allergies Allergy/AdvReac Type Severity Reaction Status Date / Time ibuprofen Allergy Unknown Verified 02/01/19 17:32 latex Allergy Unknown Verified 02/01/19 17:32 Physical Exam Vitals: Vital Signs Temp Pulse Resp BP Pulse Ox 02/02/19 14:59 98.9 F 67 20 115/68 96 02/02/19 06:47 99.3 F 84 22 118/69 93 L 02/01/19 22:33 73 113/68 92 L 02/01/19 22:18 78 108/66 89 L 02/01/19 22:03 79 107/66 90 L 02/01/19 21:48 84 112/65 94 L 02/01/19 21:33 84 109/65 92 L 02/01/19 21:18 83 104/63 90 L 02/01/19 21:03 77 113/62 92 L 02/01/19 20:48 85 107/65 90 L 02/01/19 20:33 79 105/62 93 L 02/01/19 20:18 79 121/66 95 02/01/19 20:00 98.8 F 94 18 106/65 95 02/01/19 19:30 81 16 148/74 96 02/01/19 19:15 80 16 136/67 96 02/01/19 19:03 96.8 F L 79 16 143/66 94 L Intake and Output 02/02/19 02/02/19 02/02/19 06:59 14:59 22:59 Other: Voiding Method Toilet # Voids 0 2 HEENT: Anicteric, conjunctiva are pink and moist, nasal or oral mucosa are without lesion. The neck is supple without lymphadenopathy or thyromegaly. No oral thrush is noted. Lungs: good bilateral air entry, there are no significant crackles or wheezes, no bronchial sounds or egophony. Heart: Regular rate and rhythm with an audible S1-S2, no S3 or S4 noted. No significant murmur click or rub noted. Abdomen: Positive bowel sounds, soft and nontender, there is no palpable masses or organomegaly. Abdomen is without guarding or rebound. Extremities:Upper extremities reveal evidence of equal pulses, no lesions are seen, no petechiae or telangiectasia. The lower extremities have no significant edema, peripheral pulses were 2+ and symmetric, no lesions or ulcerations are seen. Capillary refill was brisk. Skin: no rash but does have the surgical site on the right hand dorsum, approximated without purulence tender mild erythema. There is not significant amount of ascending erythema. There is no lymphadenopathy on the right arm Neuro:Awake and alert, oriented to person place and time. No gross focal sensory motor deficits noted. Musculoskeletal: Patient is ambulatory No acute joint effusions are noted. Lymph: No cervical, supraclavicular, axillary, epitrochlear, or inguinal lymphadenopathy was noted. Results CBC & Chem 7: 02/02/19 08:11 02/02/19 08:11 Labs: Abnormal Lab Results - Last 24 Hours (Table) 02/01/19 02/02/19 02/02/19 Range/Units 21:29 04:48 06:50 RBC (3.80-5.40) m/uL Hgb (11.4-16.0) gm/dL Hct (34.0-46.0) % Chloride (98-107) mmol/L BUN (7-17) mg/dL Glucose (74-99) mg/dL POC Glucose (mg/dL) 124 H 139 H 128 H (75-99) mg/dL Total Protein (6.3-8.2) g/dL Albumin (3.5-5.0) g/dL 02/02/19 02/02/19 02/02/19 Range/Units 08:11 08:11 12:23 RBC 3.55 L (3.80-5.40) m/uL Hgb 10.3 L (11.4-16.0) gm/dL Hct 30.8 L (34.0-46.0) % Chloride 108 H (98-107) mmol/L BUN 21 H (7-17) mg/dL Glucose 107 H (74-99) mg/dL POC Glucose (mg/dL) 147 H (75-99) mg/dL Total Protein 5.7 L (6.3-8.2) g/dL Albumin 3.4 L (3.5-5.0) g/dL 02/02/19 Range/Units 16:47 RBC (3.80-5.40) m/uL Hgb (11.4-16.0) gm/dL Hct (34.0-46.0) % Chloride (98-107) mmol/L BUN (7-17) mg/dL Glucose (74-99) mg/dL POC Glucose (mg/dL) 207 H (75-99) mg/dL Total Protein (6.3-8.2) g/dL Albumin (3.5-5.0) g/dL Microbiology - Last 24 Hours (Table) 02/01/19 18:50 Gram Stain - Preliminary Hand - Right Wound Culture - Preliminary 02/01/19 18:50 Anaerobic Culture - Preliminary Hand - Right 01/31/19 18:30 Blood Culture - Preliminary Blood No Growth after 24 hours Laboratory Results WBC 7.9 k/uL (3.8-10.6) 02/02/19 08:11 RBC 3.55 m/uL (3.80-5.40) L 02/02/19 08:11 Hgb 10.3 gm/dL (11.4-16.0) L 02/02/19 08:11 Hct 30.8 % (34.0-46.0) L 02/02/19 08:11 MCV 87.0 fL (80.0-100.0) 02/02/19 08:11 MCH 29.0 pg (25.0-35.0) 02/02/19 08:11 MCHC 33.4 g/dL (31.0-37.0) 02/02/19 08:11 RDW 13.5 % (11.5-15.5) 02/02/19 08:11 Plt Count 201 k/uL (150-450) 02/02/19 08:11 Neutrophils % 79 % 01/31/19 18:05 Lymphocytes % 11 % 01/31/19 18:05 Monocytes % 7 % 01/31/19 18:05 Eosinophils % 1 % 01/31/19 18:05 Basophils % 0 % 01/31/19 18:05 Neutrophils # 8.7 k/uL (1.3-7.7) H 01/31/19 18:05 Lymphocytes # 1.3 k/uL (1.0-4.8) 01/31/19 18:05 Monocytes # 0.8 k/uL (0-1.0) 01/31/19 18:05 Eosinophils # 0.1 k/uL (0-0.7) 01/31/19 18:05 Basophils # 0.0 k/uL (0-0.2) 01/31/19 18:05 Sodium 140 mmol/L (137-145) 02/02/19 08:11 Potassium 4.5 mmol/L (3.5-5.1) 02/02/19 08:11 Chloride 108 mmol/L (98-107) H 02/02/19 08:11 Carbon Dioxide 27 mmol/L (22-30) 02/02/19 08:11 Anion Gap 5 mmol/L 02/02/19 08:11 BUN 21 mg/dL (7-17) H 02/02/19 08:11 Creatinine 0.71 mg/dL (0.52-1.04) 02/02/19 08:11 Est GFR (CKD-EPI)AfAm >90 (>60 ml/min/1.73 sqM) 02/02/19 08:11 Est GFR (CKD-EPI)NonAf >90 (>60 ml/min/1.73 sqM) 02/02/19 08:11 Glucose 107 mg/dL (74-99) H 02/02/19 08:11 POC Glucose (mg/dL) 207 mg/dL (75-99) H 02/02/19 16:47 POC Glu Teletype Telegrapher Mirtha Houstno 02/02/19 16:47 Plasma Lactic Acid Mark 0.9 mmol/L (0.7-2.0) 01/31/19 18:05 Calcium 8.8 mg/dL (8.4-10.2) 02/02/19 08:11 Total Bilirubin 0.6 mg/dL (0.2-1.3) 02/02/19 08:11 AST 26 U/L (14-36) 02/02/19 08:11 ALT 20 U/L (9-52) 02/02/19 08:11 Alkaline Phosphatase 68 U/L (38-126) 02/02/19 08:11 Total Protein 5.7 g/dL (6.3-8.2) L 02/02/19 08:11 Albumin 3.4 g/dL (3.5-5.0) L 02/02/19 08:11 Microbiology Entire Visit 02/01/19 18:50 Hand - Right Gram Stain - Preliminary 02/01/19 18:50 Hand - Right Wound Culture - Preliminary 02/01/19 18:50 Hand - Right Anaerobic Culture - Preliminary 01/31/19 18:30 Blood Blood Culture - Preliminary No Growth after 24 hours Assessment and Plan (1) Dog bite of right hand Narrative/Plan: 58-year-old female who has a history of diabetes mellitus since the age of 7 who relates has modest control of her blood sugars states that her family pet better on her right hand in a somewhat provoked fashion. She did seek care at an outpatient clinic where the site was cleansed and tightly closed. She was not given anabolic therapy was a dog bite. Rapidly with her diabetes and the fact that it was a complex plate she's now developed a significant infection at the site and required surgical incision and drainage to the area and debridement. 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 Patient is having ongoing pain to her hand. Cultures are pending. Patient will likely require a course of intravenous antibiotic therapy given the long-standing history of diabetes in the extent of the injury. We will work toward this and hopefully will be able to have IV access and discharge come Monday with home IV antibiotic therapy. Pain control seems to be adequate Multivitamin with zinc for assistance in wound healing Nonadherent dressing is being utilized at this time. Elevation of the limb will help with edema Current Visit: Yes Status: Acute Code(s): S61.451A - OPEN BITE OF RIGHT HAND, INITIAL ENCOUNTER; W54.0XXA - BITTEN BY DOG, INITIAL ENCOUNTER SNOMED Code(s): 980832158 (2) Abscess Current Visit: Yes Status: Acute Code(s): L02.91 - CUTANEOUS ABSCESS, UNSPECIFIED SNOMED Code(s): 167502340 (3) Diabetes mellitus Current Visit: Yes Status: Acute Code(s): E11.9 - TYPE 2 DIABETES MELLITUS WITHOUT COMPLICATIONS SNOMED Code(s): 75617404
[2019-02-02] MEDS: MULTIVITAMINS, THERA 1 EACH TAB PO SCH (18:24)
[2019-02-02 20:08] LABS: Glucose,Whole Blood 404 mg/dL (75-99)
[2019-02-02] MEDS: INSULIN DETEMIR (LEVEMIR) 100 UNIT/ML SYR SQ SCH (21:51)
[2019-02-02 22:09] LABS: Glucose,Whole Blood 341 mg/dL (75-99)
[2019-02-03] MEDS: ONDANSETRON 4 MG/2 ML VIAL IVP PRN ×2 (00:18→09:05)
[2019-02-03] MEDS: AMPICILLIN-SULBACTAM 1.5 GM in SODIUM CHLORIDE 0.9% 50 ML IVPB SCH ×5 (00:19→23:30)
[2019-02-03] MEDS: HYDROcodone/APAP 5-325MG 1 EACH TAB PO PRN ×3 (00:19→17:33)
[2019-02-03] MEDS: HEPARIN SODIUM,PORCINE 5,000 UNIT/ML 1 ML VIAL SQ SCH ×2 (01:18→09:06)
[2019-02-03] MEDS: LEVOTHYROXINE 125 MCG TAB PO SCH (06:02)
[2019-02-03 06:48] LABS: Glucose,Whole Blood 153 mg/dL (75-99)
[2019-02-03] MEDS: CLOPIDOGREL 75 MG TAB PO SCH (09:04)
[2019-02-03] MEDS: LISINOPRIL 5 MG TAB PO SCH (09:04)
[2019-02-03] MEDS: ATORVASTATIN 40 MG TAB PO SCH (09:04)
[2019-02-03] MEDS: METOPROLOL TARTRATE 25 MG TAB PO SCH (09:04)
[2019-02-03] MEDS: SERTRALINE 100 MG TAB PO SCH (09:04)
[2019-02-03] MEDS: INSULIN ASPART (NovoLOG) 100 UNIT/ML VIAL SQ SCH ×4 (09:06→21:11)
[2019-02-03 11:40] LABS: Glucose,Whole Blood 105 mg/dL (75-99)
[2019-02-03] MEDS ORDERED: FUROSEMIDE 10 MG/ML 4 ML VIAL IV STA (12:28)
--- NOTE | 2019-02-03 12:29 | P.PN ---
Subjective Progress Note Date: 02/03/19 Principal diagnosis: Dog bite Patient was seen and examined. No acute events overnight. Patient continues to complain of right and pain extending into the forearm. Pain is 8 out of 10 in severity. She also reports nausea and 2 episodes of nonbilious nonbloody vomiting yesterday. She denies any chest pain or palpitations. No fever or chills. Objective - Vital Signs Vital signs: Vital Signs Temp 98.9 F 02/03/19 07:00 Pulse 77 02/03/19 07:00 Resp 16 02/03/19 07:00 BP 118/75 02/03/19 07:00 Pulse Ox 93 L 02/03/19 07:00 Intake & Output 02/02/19 02/03/19 02/03/19 18:59 06:59 18:59 Other: Voiding Method Toilet Bedside Commode # Voids 2 1 - Exam General: [non toxic], [no distress], [appears at stated age] Derm: [warm], [dry] Head: [atraumatic], [normocephalic], [symmetric] Eyes: [EOMI], [no lid lag], [anicteric sclera] Mouth: [no lip lesion], [mucus membranes moist] Cardiovascular: [S1S2 reg], [no murmur], [positive DP pulse bilateral], Lungs: [CTA bilateral], [no rhonchi, no rales] , [no accessory muscle use] Abdominal: [soft], [ nontender to palpation], [no guarding], [no appreciable organomegaly] Ext: [no gross muscle atrophy], [no edema], [no contractures], [right hand wrapped, decreased sensation of the fingertips] Neuro: [decreased sensation left lower extremity] Psych: [Alert], [oriented], [appropriate affect] - Labs CBC & Chem 7: 02/02/19 08:11 02/02/19 08:11 Labs: Abnormal Lab Results - Last 24 Hours (Table) 02/02/19 02/02/19 02/02/19 Range/Units 12:23 16:47 20:04 POC Glucose (mg/dL) 147 H 207 H 404 H (75-99) mg/dL 05/18/19 05/19/19 05/19/19 Range/Units 22:07 06:46 11:38 POC Glucose (mg/dL) 341 H 153 H 105 H (75-99) mg/dL Microbiology - Last 24 Hours (Table) 01/31/19 18:30 Blood Culture - Preliminary Blood No Growth after 48 hours Assessment and Plan Assessment: Assessment and Plan Low O2 saturation Dog bite right hand post suturing Diabetes mellitus CAD Hypertension Hypothyroidism. Patient is a nonsmoker. No history of COPD or CHF. Reports cough after surgery. Chest x-ray shows enlarged heart and vascular congestion. Plans: O2 per NC to maintain O2 saturation greater than 92%. Incentive spirometry. Avoid IV fluid overload. States that she has had a stress test at [facility] 2 weeks ago, will obtain records. One dose of Lasix today. Plan: Continue Unasyn IV. Pain management with [place] or morphine. General surgery consulted, recommends orthopedic consultation. Orthopedic surgery consulted, POD 2 debridement and wash out. Follow blood culture. Follow wound cultures. ID consulted, recommends PICC line and IV antibiotics tomorrow. [id number] glucose 105. Plan: Levemir 25 units at bedtime. Insulin sliding scale. Hypoglycemic precautions. Regular Accu-Cheks. Ensure type glycemic control that would prevent poor wound healing. Plan: Continue Plavix and Lipitor. Continue beta yumiko. BP 118/75. Plan: Continue metoprolol and lisinopril. Monitor vitals, adjust medications as necessary. Plan: Continue Synthroid. POD 2 debridement. Continue IV antibiotics. Orthopedic surgery on board. ID consulted. Pending cultures. Plans for PICC line tomorrow. Obtain records from [facility].
[2019-02-03] MEDS: MULTIVITAMINS, THERA 1 EACH TAB PO SCH (12:35)
[2019-02-03] MEDS: PANTOPRAZOLE 40 MG TABLET PO SCH (12:39)
--- NOTE | 2019-02-03 13:43 | P.PN ---
Subjective Progress Note Date: 02/03/19 Principal diagnosis: Status post I&D right hand Patient evaluated at bedside, she is resting comfortably. She notes some discomfort on the top of her hand. She denies any fevers or chills at this time. Objective - Vital Signs Vital signs: Vital Signs Temp 98.9 F 02/03/19 07:00 Pulse 77 02/03/19 07:00 Resp 16 02/03/19 07:00 BP 118/75 02/03/19 07:00 Pulse Ox 93 L 02/03/19 07:00 Intake & Output 02/02/19 02/03/19 02/03/19 18:59 06:59 18:59 Other: Voiding Method Toilet Bedside Commode # Voids 2 1 - Exam Right upper extremity: Incision is clean, dry and intact. Stitches are all in good position. Soft tissue swelling and erythema has improved. She is able to wiggle the fingers and minimal difficulty. Her sensation to light touch is intact. Her radial pulses 2+. - Labs CBC & Chem 7: 02/02/19 08:11 02/02/19 08:11 Labs: Abnormal Lab Results - Last 24 Hours (Table) 02/02/19 02/02/19 02/02/19 Range/Units 16:47 20:04 22:07 POC Glucose (mg/dL) 207 H 404 H 341 H (75-99) mg/dL 02/03/19 02/03/19 Range/Units 06:46 11:38 POC Glucose (mg/dL) 153 H 105 H (75-99) mg/dL Microbiology - Last 24 Hours (Table) 01/31/19 18:30 Blood Culture - Preliminary Blood No Growth after 48 hours Assessment and Plan Plan: Assessment: Postop day #2 status post I&D right hand Plan: Pain control Awaiting PICC line, hopefully tomorrow. Plavix will be held for tomorrow Daily dressing changes/ice and elevate Wound cultures are pending at this time, infectious disease recommendations appreciated Medical management Hopeful discharged home tomorrow if PICC line and cultures are done Time with Patient: Less than 30
[2019-02-03] MEDS: HYDROmorphone 0.5 MG/0.5 ML SYRINGE IM PRN ×2 (14:27→22:08)
[2019-02-03] MEDS ORDERED: HEPARIN SODIUM,PORCINE 5,000 UNIT/ML 1 ML VIAL SQ SCH (17:00)
[2019-02-03 17:13] LABS: Glucose,Whole Blood 276 mg/dL (75-99)
[2019-02-03 20:38] LABS: Glucose,Whole Blood 307 mg/dL (75-99)
[2019-02-03] MEDS: INSULIN DETEMIR (LEVEMIR) 100 UNIT/ML SYR SQ SCH (21:11)
[2019-02-04] MEDS: ONDANSETRON 4 MG/2 ML VIAL IVP PRN ×2 (00:19→10:09)
[2019-02-04 03:18] VITALS: RESP 12
[2019-02-04] MEDS: LEVOTHYROXINE 125 MCG TAB PO SCH (05:33)
[2019-02-04] MEDS: AMPICILLIN-SULBACTAM 1.5 GM in SODIUM CHLORIDE 0.9% 50 ML IVPB SCH ×3 (05:34→18:18)
[2019-02-04 07:07] LABS: Glucose,Whole Blood 47 mg/dL (75-99)
[2019-02-04 07:25] LABS: Glucose,Whole Blood 49 mg/dL (75-99)
[2019-02-04 07:42] LABS: Glucose,Whole Blood 55 mg/dL (75-99)
[2019-02-04] MEDS: INSULIN ASPART (NovoLOG) 100 UNIT/ML VIAL SQ SCH ×3 (08:21→16:57)
[2019-02-04] MEDS: HYDROmorphone 0.5 MG/0.5 ML SYRINGE IM PRN ×2 (08:26→14:26)
[2019-02-04 08:27] LABS: Glucose,Whole Blood 138 mg/dL (75-99)
[2019-02-04] MEDS: ATORVASTATIN 40 MG TAB PO SCH (08:27)
[2019-02-04] MEDS: METOPROLOL TARTRATE 25 MG TAB PO SCH (08:27)
[2019-02-04] MEDS: SERTRALINE 100 MG TAB PO SCH (08:27)
[2019-02-04] MEDS: MULTIVITAMINS, THERA 1 EACH TAB PO SCH (08:27)
[2019-02-04] MEDS: LISINOPRIL 5 MG TAB PO SCH (08:27)
[2019-02-04] MEDS: PANTOPRAZOLE 40 MG TABLET PO SCH (08:27)
[2019-02-04 08:35] LABS: Basophils % (A) 1 %; Eosinophils # (A) 0.2 k/uL (0-0.7); Eosinophils % (A) 3 %; HCT 35.7 % (34.0-46.0); HGB 11.7 gm/dL (11.4-16.0); Lymphocytes # (A) 0.7 k/uL (1.0-4.8); Lymphocytes % (A) 9 %; MCH 28.1 pg (25.0-35.0); MCHC 32.8 g/dL (31.0-37.0); MCV 85.8 fL (80.0-100.0); Mean Platelet Volume 7.9; Monocytes # (A) 0.4 k/uL (0-1.0); Monocytes % (A) 6 %; Neutrophils # (A) 5.8 k/uL (1.3-7.7); Neutrophils % (A) 80 %; Platelet Count 253 k/uL (150-450); RBC 4.15 m/uL (3.80-5.40); RDW 13.3 % (11.5-15.5); WBC 7.2 k/uL (3.8-10.6)
[2019-02-04 08:42] LABS: Anion Gap 6 mmol/L; Blood Urea Nitrogen 20 mg/dL (7-17); Calcium 9.4 mg/dL (8.4-10.2); Carbon Dioxide 31 mmol/L (22-30); Chloride 104 mmol/L (98-107); Glucose 140 mg/dL (74-99); Potassium 4.3 mmol/L (3.5-5.1); Sodium 141 mmol/L (137-145)
--- NOTE | 2019-02-04 10:21 | P.PN ---
Subjective Progress Note Date: 02/04/19 Principal diagnosis: Status post I&D right hand Patient evaluated at bedside, she is resting comfortably. She denies any fevers or chills at this time. Objective - Vital Signs Vital signs: Vital Signs Temp 97.9 F 02/04/19 07:12 Pulse 77 02/04/19 07:12 Resp 12 02/04/19 03:15 BP 158/71 02/04/19 07:12 Pulse Ox 93 L 02/04/19 07:12 Intake & Output 02/03/19 02/04/19 02/04/19 18:59 06:59 18:59 Intake Total 260 50 Output Total 1200 Balance -940 50 Intake: Intake, IV Titration 260 50 Amount Ampicillin-Sulbactam 1.5 100 50 gm In Sodium Chloride 0.9 % 50 ml @ 100 mls/hr IVPB Q6HR [facility] Rx#:[id number] Lactated Ringers 1,000 ml 160 @ 0 mls/hr IV [facility] Rx#:[id number] Output: Urine 1200 Other: Voiding Method Bedside Commode # Voids 1 - Exam Right upper extremity: Incision is clean, dry and intact. Stitches are all in good position. She is able to wiggle the fingers and minimal difficulty. Her sensation to light touch is intact. Her radial pulses 2+. - Labs CBC & Chem 7: 02/04/19 08:15 02/04/19 08:15 Labs: Abnormal Lab Results - Last 24 Hours (Table) 02/03/19 02/03/19 02/03/19 Range/Units 11:38 17:12 20:36 Lymphocytes # (1.0-4.8) k/uL Carbon Dioxide (22-30) mmol/L BUN (7-17) mg/dL Glucose (74-99) mg/dL POC Glucose (mg/dL) 105 H 276 H 307 H (75-99) mg/dL 02/04/19 02/04/19 02/04/19 Range/Units 07:05 07:24 07:39 Lymphocytes # (1.0-4.8) k/uL Carbon Dioxide (22-30) mmol/L BUN (7-17) mg/dL Glucose (74-99) mg/dL POC Glucose (mg/dL) 47 L 49 L 55 L (75-99) mg/dL 02/04/19 02/04/19 02/04/19 Range/Units 08:15 08:15 08:25 Lymphocytes # 0.7 L (1.0-4.8) k/uL Carbon Dioxide 31 H (22-30) mmol/L BUN 20 H (7-17) mg/dL Glucose 140 H (74-99) mg/dL POC Glucose (mg/dL) 138 H (75-99) mg/dL Microbiology - Last 24 Hours (Table) 01/31/19 18:30 Blood Culture - Preliminary Blood No Growth after 72 hours Assessment and Plan Plan: Assessment: Postop day #3 status post I&D right hand Plan: Pain control Daily dressing changes/ice and elevate Wound cultures are pending at this time, infectious disease recommendations appreciated Medical management Orthopedically, patient stable for discharge. We'll be signing off at this time. Plan for follow-up in 10-14 days for incision recheck and suture removal Time with Patient: Less than 30
[2019-02-04 11:54] LABS: Glucose,Whole Blood 304 mg/dL (75-99)
--- NOTE | 2019-02-04 13:19 | P.DS ---
Providers Date of admission: 01/31/19 20:57 Expected date of discharge: 02/04/19 Attending physician: Xavier Aranda MD Consults: 02/01/19 07:47 Consult Physician Routine Consulting Provider: Nirav Calvillo Consult Reason/Comments: dog bite to hand Do you want consulting provider notified?: Yes Consult Physician Urgent Consulting Provider: Nirav Calvillo Consult Reason/Comments: Hand bite Do you want consulting provider notified?: Yes 02/01/19 18:57 Consult Physician Routine Consulting Provider: Aden Jacques Consult Reason/Comments: Dog bite, s/p I@D Do you want consulting provider notified?: Yes Primary care physician: [facility] Course: Patient is a 52-year-old female with a past medical history of type 1 diabetes mellitus, and CAD with multiple MIs and several stents, presented to the ED for right hand dog bite. The patient reports that her [place] bulldog bit her on the right hand yesterday at 12 PM. She subsequently went to her local urgent care center where they placed 7 sutures and discharged her to home without antibiotics. She was seeing her supervisor microwave for her regular follow-up when they noted that her right hand was swollen and advised her to come to the ED. The patient notes that her swelling has worsened since yesterday and she now has some discharge from the wound. She endorsed continued pain, currently at a 6 out of 10 at the site. She otherwise denied weakness or paresthesias of the hand. She further denied fever, chills, chest pain, shortness of breath, nausea, or vomiting. She also denied abdominal pain, diarrhea, or recent travel. The patient underwent an extensive elevation in the ED with WBC count 11, creatinine 0.69, BUN 24, and hemoglobin 12.7. 2 of the sutures were removed from her right hand and she was given a dose of Unasyn and subsequently admitted to the medicine service for further management. Patient was started on Unasyn IV for her dog bite hand injection. General surgery was consulted and they recommended Orthopedic surgery consult. Orthopedic surgery was consulted and underwent I&D on 02/01/2019. Infectious disease was consulted and recommended PICC line and IV antibiotics. Her pain was controlled with [place], morphine and/or Dilaudid. Her home dose of insulin was restarted for diabetes mellitus. Patient was noted to be slightly hypoxic throughout her hospitalization. Her O2 saturation ranged from 89% to 96% on room air. No history of COPD or CHF. Chest x-ray showed enlarged heart and vascular congestion. She skin O2 per nasal cannula to maintain O2 saturation greater than 92%. Incentive spirometry was ordered. She was given 1 dose of Lasix. Patient was seen and examined. No acute events overnight. Patient reports significant improvement in her right hand. Pain continues to extend up to the mid forearm. She denies any nausea or vomiting. No fever or chills. She denies any chest pain, shortness of breath or palpitations. General: [non toxic], [no distress], [appears at stated age] Derm: [warm], [dry] Head: [atraumatic], [normocephalic], [symmetric] Eyes: [EOMI], [no lid lag], [anicteric sclera] Mouth: [no lip lesion], [mucus membranes moist] Cardiovascular: [S1S2 reg], [no murmur], [positive DP pulse bilateral], Lungs: [CTA bilateral], [no rhonchi, no rales] , [no accessory muscle use] Abdominal: [soft], [ nontender to palpation], [no guarding], [no appreciable organomegaly] Ext: [no gross muscle atrophy], [no edema], [no contractures], [right hand wrapped, decreased sensation of the fingertips] Neuro: [decreased sensation left lower extremity] Psych: [Alert], [oriented], [appropriate affect] Assessment and Plan Low O2 saturation Dog bite right hand post suturing Diabetes mellitus CAD Hypertension Hypothyroidism. Patient is a nonsmoker. No history of COPD or CHF. Reports cough after surgery. Chest x-ray shows enlarged heart and vascular congestion. Likely vascular congestion from IVF. Plans: O2 per NC to maintain O2 saturation greater than 92%. Incentive spirometry. Avoid IV fluid overload. States that she has had a stress test at [facility] 2 weeks ago, follow up with PCP. Wells score 0, no concerns for PE. Blood culture negative at 72 hours. Wound cultures prelim negative at the time of discharge. Plan: Continue Unasyn IV. Pain management with [place] or morphin e. General surgery consulted, recommends orthopedic consultation. Orthopedic surgery consulted, POD 3 debridement and wash out. Follow blood culture. Follow wound cultures. ID consulted, recommends PICC line and IV antibiotics today. [id number] glucose 304. Plan: Levemir 25 units at bedtime. Insulin sliding scale. Hypoglycemic precautions. Regular Accu-Cheks. Ensure type glycemic control that would prevent poor wound healing. Plan: Continue Plavix and Lipitor. Continue beta yumiko. BP 158/71. Plan: Continue metoprolol and lisinopril. Monitor vitals, adjust medications as necessary. Plan: Continue Synthroid. POD 3 debridement. Cleared by orthopedic surgery. PICC line placed this morning, SW working to obtain antibiotics for patient. Pertinent Studies: Hand x-ray, chest x-ray Procedures: I&D Patient Condition at Discharge: Stable Plan - Discharge Summary Discharge Rx Participant: Yes New Discharge Prescriptions: New Ertapenem [INVanz] 1 gm IM DAILY #14 vial HYDROcodone/APAP 10-325MG [[place] 10-325] 1 tab PO Q4HR PRN 3 Days #18 tab PRN Reason: Pain Continue Sertraline [Zoloft] 200 mg PO DAILY Metoclopramide HCl [Reglan] 5 mg PO TID Levothyroxine Sodium [Synthroid] 125 mcg PO DAILY Clopidogrel Bisulfate [Plavix] 75 mg PO DAILY Atorvastatin [Lipitor] 40 mg PO DAILY Lisinopril [Prinivil] 5 mg PO DAILY Insulin Glargine [Lantus] 30 unit SQ HS INSULIN LISPRO (HumaLOG) [humaLOG] See Protocol SQ ACHS Metoprolol Tartrate 25 mg PO DAILY Discharge Medication List Atorvastatin [Lipitor] 40 mg PO DAILY 01/31/19 [History] Clopidogrel Bisulfate [Plavix] 75 mg PO DAILY 01/31/19 [History] INSULIN LISPRO (HumaLOG) [humaLOG] See Protocol SQ ACHS 01/31/19 [History] Insulin Glargine [Lantus] 30 unit SQ HS 01/31/19 [History] Levothyroxine Sodium [Synthroid] 125 mcg PO DAILY 01/31/19 [History] Lisinopril [Prinivil] 5 mg PO DAILY 01/31/19 [History] Metoclopramide HCl [Reglan] 5 mg PO TID 01/31/19 [History] Metoprolol Tartrate 25 mg PO DAILY 01/31/19 [History] Sertraline [Zoloft] 200 mg PO DAILY 01/31/19 [History] Ertapenem [INVanz] 1 gm IM DAILY #14 vial 02/02/19 [Rx] HYDROcodone/APAP 10-325MG [[place] 10-325] 1 tab PO Q4HR PRN 3 Days #18 tab 02/04/19 [Rx] Follow up Appointment(s)/Referral(s): Edmar Gallegos DO [Primary Care Provider] - 1-2 days Kong Cuello PAC [PHYSICIAN LIGHTING ADVISER] - 02/20/19 2:10 pm Aden Jacques MD [STAFF PHYSICIAN] - 1 Week Activity/Diet/Wound Care/Special Instructions: Patient admitted for inpatient care. Orthopedic discharge instructions: 1. Keep incision clean dry and intact 2. Keep incision covered while showering 3. After about 3-4 days, okay to leave open to the air occasionally, utilize light bandage 4. Avoid excessive use of the right hand 5. Ice the hand as needed 6. [facility] 10 [facility] Please follow-up with PCP within 1-2 days of discharge. Follow-up with Dr. Jacques with the appointment given to you. Take all medications as advised. Discharge Disposition: HOME SELF-CARE
[2019-02-04 15:54] VITALS: BP 116/69; PULSE 71; TEMP 97.8
[2019-02-04] MEDS ORDERED: ONDANSETRON 4 MG/2 ML VIAL IVP PRN (16:29)
[2019-02-04 16:38] LABS: Glucose,Whole Blood 270 mg/dL (75-99)
[2019-02-04] MEDS: HYDROcodone/APAP 5-325MG 1 EACH TAB PO PRN (18:28)
== END 2019-02-04 20:41 | disposition home or self-care (01) | DRG 580 ==
LOC: EC 16:18 → 4SSUR 20:57
PROVIDERS: ADMIT Internal Medicine; ATTEND Internal Medicine
PROC: 0JBJ0ZZ Excision of Right Hand Subcutaneous Tissue and Fascia, Open Approach (ICD-10-PCS; principal; 2019-02-01 09:55)
PROC: 05HF33Z Insertion of Infusion Device into Left Cephalic Vein, Percutaneous Approach (ICD-10-PCS; 2019-02-04 08:30)
DX: L02.511 Cutaneous abscess of right hand (principal); L03.113 Cellulitis of right upper limb; I69.954 Hemiplegia and hemiparesis following unspecified cerebrovascular disease affecting left non-dominant side; S61.451A Open bite of right hand, initial encounter; I11.9 Hypertensive heart disease without heart failure; E10.9 Type 1 diabetes mellitus without complications; E03.9 Hypothyroidism, unspecified; R40.2362 Coma scale, best motor response, obeys commands, at arrival to emergency department; R40.2142 Coma scale, eyes open, spontaneous, at arrival to emergency department; R40.2252 Coma scale, best verbal response, oriented, at arrival to emergency department; R09.02 Hypoxemia; I25.10 Atherosclerotic heart disease of native coronary artery without angina pectoris; I25.2 Old myocardial infarction; Z79.4 Long term (current) use of insulin; Z79.02 Long term (current) use of antithrombotics/antiplatelets; Z79.890 Hormone replacement therapy; Z79.899 Other long term (current) drug therapy; Z95.5 Presence of coronary angioplasty implant and graft; Z97.0 Presence of artificial eye; Z96.9 Presence of functional implant, unspecified; W54.0XXA Bitten by dog, initial encounter; Y92.009 Unspecified place in unspecified non-institutional (private) residence as the place of occurrence of the external cause; Z88.8 Allergy status to other drugs, medicaments and biological substances; Z91.040 Latex allergy status
CPT/HCPCS: 36410; 36415; 71046; 76937; 80048; 80053; 83605; 85025; 85027; 87040; 87070; 87075; 87205; 96365; 99284